=== PATIENT | male | born 1950 | race Caucasian/White ===

== ENCOUNTER 2018-08-01 10:38 | Day surgery (SDC) | payer OTHER, SELFPAY ==
[2018-07-11 08:09] VITALS: BMI 33.6
--- NOTE | 2018-08-01 07:40 | PM.PREOP ---
Pre-operative Note Interval Note History & Physical reviewed/Exam performed by Physician: Yes Changes to H&P: No
[2018-08-01 11:03] VITALS: BP 202/89; PULSE 61; RESP 15; TEMP 36.3; O2SAT 97; BMI 33.6
[2018-08-01] MEDS: LACTATED RINGERS 1,000 ML 42 ML IV (12:52)
[2018-08-01] MEDS: CEFAZOLIN 2 GM/100 ML FROZ.PIGGY IV (12:55)
--- NOTE | 2018-08-01 13:19 | SUR.OPER ---
Supine on padded OR bed, head on pillow, right arm secured on padded arm board at <90 degrees abduction, left arm drapped free on black padded arm tablelegs uncrossed, safety belt at thigh, tape over blanket over lower legs.
[2018-08-01] MEDS: BUPIVACAINE 0.5% W/ EPI (PF) VIAL 30 ML INJ (13:25)
--- NOTE | 2018-08-01 13:38 | P.OP_ITS ---
Operative Date/Time/Diagnoses Date of procedure: 08/01/18 Time of procedure: 13:00 Pre-op diagnosis: Left carpal tunnel Post-op diagnosis: same Procedure & Clinicians Procedure: Left carpal tunnel release Same procedure as scheduled: Yes Indications: Left carpal tunnel Surgeon: Reji Cordero Click Yes if Unassisted: Yes Anesthesia Type: Peripheral nerve block Operative Notes Findings: Compression of the median nerve at the carpal tunnel Closure Type: primary Specimen(s): none sent Estimated Blood Loss (mL): 0 Blood products transfused: none Tourniquet time (min): 26 Procedure in detail: On date of service, the patient was met in the holding area. Patients operative site was signed and witnessed by the OR staff. The surgery was once again discussed with the patient, and any remaining questions they had were answered fully. Patient was taken back to the operating theater and placed on the operating table in a supine position. Great care was taken to ensure that all bony prominences were carefully padded. A well-padded tourniquet was placed up along the upper extremity. A timeout was performed to verify patient's name, procedure, and operative site. The arm was then prepped and draped in the normal sterile fashion. A 15 blade was used to incise through skin In the center of the palm. Pickups and tenotomy scissors were used to dissect down until the palmar fascia was visualized. The palmar fascia was then sharply incised using a 15 blade. This gave us good visualization of the carpal ligament. A small opening was made into the carpal ligament, and a curved hemostat was placed into that opening. A 15 blade was then used to sharply incise the carpal ligament with the structures beneath being protected by the hemostat. Pickups and Metzenbaum scissors were used to complete the decompression both distally and proximally. This provided a complete decompression of the median nerve. The wound was then irrigated and closed with nylon. The hand was then cleaned, dried, and dressed. Patient was taken to the PACU in stable condition. Complications: none Condition: stable Disposition: PACU Plan for aftercare: No restrictions in range of motion. No lifting more than 2- 3 lb for 2 weeks.
[2018-08-01 13:46] VITALS: BP 176/90; BP 197/86; PULSE 71; PULSE 74; RESP 16; TEMP 36.4; TEMP 36.6; O2SAT 97; O2SAT 98
[2018-08-01] MEDS: HYDROCODONE/ACET 5/325 TABLET 1 TAB PO (14:03)
[2018-08-01 14:21] VITALS: BP 178/85; PULSE 78; RESP 16; TEMP 36.6; O2SAT 98
== END 2018-08-01 14:29 | disposition home or self-care (01) ==
PROVIDERS: PCP Family Medicine; Visit Provider Orthopaedic Surgery
PROC: (CPT 64721; principal; 2018-08-01 12:45)
DX: G56.02 Carpal tunnel syndrome, left upper limb (principal); I10 Essential (primary) hypertension; E78.5 Hyperlipidemia, unspecified
CPT/HCPCS: 64721; J0360; J0690

== ENCOUNTER → 2018-08-20 08:04 | Outpatient (CLI) | payer OTHER, SELFPAY ==
[2018-08-20 08:46] LABS: Add Manual Diff / Slide Review NO; Basophils Absolute Auto 0 /uL (0-100); Basophils Percent Auto 0.7 % (0-2); Eosinophils Absolute Auto 200 /uL (0-450); Eosinophils Percent Auto 2.9 % (2-4); Hematocrit 38.1 % (41-53); Hemoglobin 13.6 g/dL (13.5-17.5); Lymphocytes Absolute Auto 1400 /uL (1100-4500); Lymphocytes Percent Auto 25.6 % (25-40); Mean Corpuscular HGB Conc 35.8 % (30-36); Mean Corpuscular Hemoglobin 31.8 PG (26-34); Mean Corpuscular Volume 88.8 fL (80-100); Monocytes Absolute Auto 700 /uL (0-900); Monocytes Percent Auto 11.8 % (3-14); Neutrophils Absolute Auto 3300 /uL (1500-7000); Platelet Count 172 X10^3/uL (150-400); Red Blood Cell Count 4.29 X10^6/uL (4.5-5.9); Red Cell Distribution Width 13.4 % (11.6-14.8); White Blood Cell Count 5.6 X10^3/uL (4.5-11.0)
[2018-08-20 09:23] LABS: Alanine Aminotransferase 23 IU/L (21-72); Albumin 4.1 g/dL (3.5-5.0); Albumin Globulin Ratio 1.5 (1.0-2.8); Alkaline Phosphatase 47 U/L (38-126); Aspartate Aminotransferase 25 IU/L (17-59); BUN Creatinine Ratio 22.9 (6-22); Bilirubin Total 0.7 mg/dL (0.2-1.3); Blood Urea Nitrogen 16 mg/dL (9-20); Calcium 9.4 mg/dL (8.4-10.2); Carbon Dioxide 29 mmol/L (22-32); Chloride 96 mmol/L (98-107); Cholesterol 189 mg/dL (140-199); Estimated Glomerular Filt Rate > 60.0 mL/min (>60); Globulin 2.7 g/dL (1.7-4.1); Glucose 128 mg/dL (80-110); HDL Cholesterol 35 mg/dL (40-60); HEMOLYSIS 18 (0-50); Sodium 133 mmol/L (137-145); Total Protein 6.8 g/dL (6.3-8.2); Triglycerides 408 mg/dL (35-150)
[2018-08-20 09:42] LABS: Thyroid Stimulating Hormone 3.95 uIU/mL (0.47-4.68)
[2018-08-20 09:50] LABS: Prostate Specific Antigen Scrn 1.99 ng/mL (0.1-4.0)
== END ==
PROVIDERS: PCP Family Medicine; Visit Provider Family Medicine
DX: E78.2 Mixed hyperlipidemia (principal); I10 Essential (primary) hypertension; Z12.5 Encounter for screening for malignant neoplasm of prostate
CPT/HCPCS: 36415; 80053; 80061; 84443; 85025; G0103

== ENCOUNTER → 2019-09-08 06:56 | Outpatient (CLI) | payer MEDICARE, SELFPAY ==
[2019-09-08 08:46] LABS: Add Manual Diff / Slide Review NO; Basophils Absolute Auto 0 /uL (0-100); Basophils Percent Auto 0.7 % (0-2); Eosinophils Absolute Auto 200 /uL (0-450); Eosinophils Percent Auto 3.5 % (2-4); Hematocrit 38.9 % (41-53); Hemoglobin 13.7 g/dL (13.5-17.5); Lymphocytes Absolute Auto 1900 /uL (1100-4500); Lymphocytes Percent Auto 31.3 % (25-40); Mean Corpuscular HGB Conc 35.3 % (30-36); Mean Corpuscular Hemoglobin 31.8 PG (26-34); Mean Corpuscular Volume 90.1 fL (80-100); Monocytes Absolute Auto 700 /uL (0-900); Monocytes Percent Auto 12.2 % (3-14); Neutrophils Absolute Auto 3100 /uL (1500-7000); Neutrophils Percent Auto 52.3 % (50-75); Platelet Count 180 X10^3/uL (150-400); Red Blood Cell Count 4.32 X10^6/uL (4.5-5.9); Red Cell Distribution Width 13.4 % (11.6-14.8); White Blood Cell Count 5.9 X10^3/uL (4.5-11.0)
[2019-09-08 08:56] LABS: Hemoglobin A1C% w Est Avg Glu 6.4 % (4.0-6.0)
[2019-09-08 09:10] LABS: Alanine Aminotransferase 23 IU/L (<50); Albumin 4.2 g/dL (3.5-5.0); Albumin Globulin Ratio 1.6 (1.0-2.8); Alkaline Phosphatase 45 U/L (38-126); Aspartate Aminotransferase 31 IU/L (17-59); BUN Creatinine Ratio 29.2 (6-22); Bilirubin Total 0.5 mg/dL (0.2-1.3); Blood Urea Nitrogen 21 mg/dL (9-20); Calcium 9.4 mg/dL (8.4-10.2); Carbon Dioxide 28 mmol/L (22-32); Chloride 97 mmol/L (98-107); Cholesterol 194 mg/dL (140-199); Estimated Glomerular Filt Rate > 60.0 mL/min (>60); Globulin 2.6 g/dL (1.7-4.1); Glucose 134 mg/dL (80-110); HDL Cholesterol 36 mg/dL (40-60); HEMOLYSIS < 15 (0-50); LDL Cholesterol Calculated 86 mg/dL (<100); Sodium 134 mmol/L (137-145); Total Protein 6.8 g/dL (6.3-8.2); Triglycerides 361 mg/dL (35-150)
[2019-09-08 09:31] LABS: Prostate Specific Antigen Scrn 1.83 ng/mL (0.1-4.0)
== END ==
PROVIDERS: PCP Family Medicine; Referring Provider Family Medicine; Visit Provider Family Medicine
DX: Z12.5 Encounter for screening for malignant neoplasm of prostate (principal); E78.2 Mixed hyperlipidemia; I10 Essential (primary) hypertension
CPT/HCPCS: 36415; 80053; 80061; 83036; 85025; G0103

== ENCOUNTER → 2019-09-10 09:56 | Outpatient (CLI) | payer MEDICARE, SELFPAY ==
[2019-09-11 19:55] LABS: Testosterone 276 ng/dL (71.8-623)
== END ==
PROVIDERS: PCP Family Medicine; Visit Provider Family Medicine
DX: M25.50 Pain in unspecified joint (principal)
CPT/HCPCS: 84403

== ENCOUNTER → 2019-09-23 09:01 | Outpatient (CLI) | payer MEDICARE, SELFPAY | LOC: ECHO 09:01 | PROVIDERS: PCP Family Medicine; Referring Provider Family Medicine; Visit Provider Family Medicine | DX: R01.1 Cardiac murmur, unspecified (principal); I35.8 Other nonrheumatic aortic valve disorders; I77.810 Thoracic aortic ectasia | CPT/HCPCS: 93306 ==

== ENCOUNTER → 2020-04-08 09:46 | Outpatient (CLI) | payer MEDICARE, SELFPAY ==
[2020-04-08 10:39] LABS: Add Manual Diff / Slide Review NO; Basophils Absolute Auto 0 /uL (0-100); Basophils Percent Auto 0.6 % (0-2); Eosinophils Absolute Auto 100 /uL (0-450); Eosinophils Percent Auto 2.1 % (2-4); Hematocrit 39.7 % (41-53); Hemoglobin 13.5 g/dL (13.5-17.5); Lymphocytes Absolute Auto 1500 /uL (1100-4500); Lymphocytes Percent Auto 25.1 % (25-40); Mean Corpuscular HGB Conc 34.1 % (30-36); Mean Corpuscular Hemoglobin 30.9 PG (26-34); Mean Corpuscular Volume 90.7 fL (80-100); Monocytes Absolute Auto 700 /uL (0-900); Monocytes Percent Auto 11.1 % (3-14); Neutrophils Absolute Auto 3600 /uL (1500-7000); Neutrophils Percent Auto 61.1 % (50-75); Platelet Count 181 X10^3/uL (150-400); Red Blood Cell Count 4.38 X10^6/uL (4.5-5.9); Red Cell Distribution Width 13.4 % (11.6-14.8)
[2020-04-08 11:02] LABS: Alanine Aminotransferase 25 IU/L (<50); Albumin 4.2 g/dL (3.5-5.0); Albumin Globulin Ratio 1.6 (1.0-2.8); Alkaline Phosphatase 46 U/L (38-126); Aspartate Aminotransferase 31 IU/L (17-59); BUN Creatinine Ratio 23.3 (6-22); Bilirubin Total 0.6 mg/dL (0.2-1.3); Blood Urea Nitrogen 14 mg/dL (9-20); Calcium 9.2 mg/dL (8.4-10.2); Carbon Dioxide 33 mmol/L (22-32); Chloride 98 mmol/L (98-107); Cholesterol 196 mg/dL (140-199); Estimated Glomerular Filt Rate > 60.0 mL/min (>60); Globulin 2.7 g/dL (1.7-4.1); Glucose 120 mg/dL (80-110); HDL Cholesterol 44 mg/dL (40-60); HEMOLYSIS 17 (0-50); LDL Cholesterol Calculated 110 mg/dL (<100); Potassium 4.3 mmol/L (3.4-5.1); Sodium 134 mmol/L (137-145); Total Protein 6.9 g/dL (6.3-8.2); Triglycerides 208 mg/dL (35-150)
[2020-04-08 11:03] LABS: Hemoglobin A1C% w Est Avg Glu 6.5 % (4.0-6.0)
[2020-04-08 11:16] LABS: Creatinine Urine Random 71.5 mg/dL
[2020-04-08 11:36] LABS: Microalbumi Creatinin Ratio Ur 9.7 ug/mg CR (<30); Microalbumin Urine Random 0.7 mg/dL (0-1.6); Vitamin D 25 Hydroxy (D3) 31.7 ng/mL (30.0-100.0)
== END ==
PROVIDERS: PCP Family Medicine; Referring Provider Family Medicine; Visit Provider Family Medicine
DX: E78.2 Mixed hyperlipidemia (principal); R73.03 Prediabetes; I10 Essential (primary) hypertension; M25.50 Pain in unspecified joint
CPT/HCPCS: 36415; 80053; 80061; 82043; 82306; 82570; 83036; 85025

== ENCOUNTER → 2020-05-25 08:11 | Outpatient (CLI) | payer MEDICARE, SELFPAY ==
--- NOTE | 2020-05-25 08:12 | DI.RAD.S_ITS ---
PROCEDURE: XR KNEE LT 3V INDICATIONS: pain TECHNIQUE: 3 views of the knee were acquired. COMPARISON: None. FINDINGS: Bones: No fracture. Scattered degenerative subchondral sclerosis and spurring. Mild narrowing of the medial joint space. Presumed chronic ununited osteophyte seen at the superior pole of the patella Soft tissues: No joint effusion. No suspicious soft tissue calcifications. Scattered vascular calcifications. IMPRESSION: Mild left knee joint degeneration. If the patient's pain or other symptoms persist, consider further evaluation with MRI Dictated by: Chuck Patel M.D. on 05/25/2020 at 10:48 Approved by: Chuck Patel M.D. on 05/25/2020 at 10:49
--- NOTE | 2020-05-25 08:12 | DI.RAD.S_ITS ---
PROCEDURE: XR KNEE RT 3V INDICATIONS: pain TECHNIQUE: 3 views of the knee were acquired. COMPARISON: None. FINDINGS: Bones: No fracture. Scattered degenerative subchondral sclerosis and spurring. Mild narrowing of the medial joint space. Mild narrowing of the patellofemoral joint space. Soft tissues: No joint effusion. No suspicious soft tissue calcifications. Scattered vascular calcifications. IMPRESSION: Mild right knee joint degeneration. If the patient's pain or other symptoms persist, consider further evaluation with MRI Dictated by: Chuck Patel M.D. on 05/25/2020 at 10:47 Approved by: Chuck Patel M.D. on 05/25/2020 at 10:48
== END ==
PROVIDERS: PCP Family Medicine; Referring Provider Family Medicine; Visit Provider Family Medicine
DX: M25.561 Pain in right knee (principal); M25.562 Pain in left knee; M17.0 Bilateral primary osteoarthritis of knee; E78.2 Mixed hyperlipidemia; I10 Essential (primary) hypertension; R73.03 Prediabetes
CPT/HCPCS: 73562

== ENCOUNTER → 2021-02-16 08:11 | Outpatient (CLI) | payer MEDICARE, SELFPAY ==
[2021-02-16 10:02] LABS: Add Manual Diff / Slide Review NO; Basophils Absolute Auto 0 /uL (0-100); Basophils Percent Auto 0.7 % (0-2); Eosinophils Absolute Auto 200 /uL (0-450); Eosinophils Percent Auto 3.1 % (2-4); Hemoglobin 13.7 g/dL (13.5-17.5); Lymphocytes Absolute Auto 1100 /uL (1100-4500); Lymphocytes Percent Auto 18.9 % (25-40); Mean Corpuscular HGB Conc 34.3 % (30-36); Mean Corpuscular Hemoglobin 31.1 PG (26-34); Mean Corpuscular Volume 90.7 fL (80-100); Monocytes Absolute Auto 600 /uL (0-900); Monocytes Percent Auto 10.3 % (3-14); Neutrophils Absolute Auto 4000 /uL (1500-7000); Platelet Count 193 X10^3/uL (150-400); Red Blood Cell Count 4.41 X10^6/uL (4.5-5.9); Red Cell Distribution Width 13.1 % (11.6-14.8)
[2021-02-16 10:19] LABS: Hemoglobin A1C% w Est Avg Glu 5.9 % (4.0-6.0)
[2021-02-16 10:48] LABS: Alanine Aminotransferase 19 IU/L (<50); Albumin 3.9 g/dL (3.5-5.0); Albumin Globulin Ratio 1.6 (1.0-2.8); Alkaline Phosphatase 42 U/L (38-126); Aspartate Aminotransferase 26 IU/L (17-59); BUN Creatinine Ratio 23.5 (6-22); Bilirubin Total 0.8 mg/dL (0.2-1.3); Blood Urea Nitrogen 16 mg/dL (9-20); Calcium 9.2 mg/dL (8.4-10.2); Carbon Dioxide 31 mmol/L (22-32); Chloride 99 mmol/L (98-107); Cholesterol 213 mg/dL (140-199); Estimated Glomerular Filt Rate > 60.0 mL/min (>60); Globulin 2.4 g/dL (1.7-4.1); Glucose 130 mg/dL (80-110); HDL Cholesterol 45 mg/dL (40-60); HEMOLYSIS < 15 (0-50); LDL Cholesterol Calculated 132 mg/dL (<100); Potassium 4.4 mmol/L (3.4-5.1); Sodium 135 mmol/L (137-145); Total Protein 6.3 g/dL (6.3-8.2); Triglycerides 178 mg/dL (35-150)
== END ==
PROVIDERS: PCP Family Medicine; Referring Provider Family Medicine; Visit Provider Family Medicine
DX: E78.2 Mixed hyperlipidemia (principal); I10 Essential (primary) hypertension; Z12.5 Encounter for screening for malignant neoplasm of prostate; R73.03 Prediabetes
CPT/HCPCS: 36415; 80053; 80061; 83036; 85025; G0103

== ENCOUNTER → 2022-03-01 07:08 | Outpatient (CLI) | payer MEDICARE, SELFPAY ==
[2022-03-01 08:05] LABS: Add Manual Diff / Slide Review NO; Basophils Absolute Auto 0 /uL (0-100); Basophils Percent Auto 0.5 % (0-2); Eosinophils Absolute Auto 200 /uL (0-450); Eosinophils Percent Auto 3.3 % (2-4); Hematocrit 38.7 % (41-53); Hemoglobin 13.5 g/dL (13.5-17.5); Lymphocytes Absolute Auto 1500 /uL (1100-4500); Lymphocytes Percent Auto 21.2 % (25-40); Mean Corpuscular HGB Conc 34.8 % (30-36); Mean Corpuscular Hemoglobin 31.1 PG (26-34); Mean Corpuscular Volume 89.3 fL (80-100); Monocytes Absolute Auto 800 /uL (0-900); Monocytes Percent Auto 11.2 % (3-14); Neutrophils Absolute Auto 4400 /uL (1500-7000); Neutrophils Percent Auto 63.8 % (50-75); Platelet Count 206 X10^3/uL (150-400); Red Blood Cell Count 4.33 X10^6/uL (4.5-5.9); Red Cell Distribution Width 13.4 % (11.6-14.8); White Blood Cell Count 6.8 X10^3/uL (4.5-11.0)
[2022-03-01 10:48] LABS: Hemoglobin A1C% w Est Avg Glu 6.5 % (4.0-6.0)
[2022-03-01 23:47] LABS: Alanine Aminotransferase 25 IU/L (<50); Albumin 4.2 g/dL (3.5-5.0); Albumin Globulin Ratio 1.6 (1.0-2.8); Alkaline Phosphatase 53 U/L (38-126); Aspartate Aminotransferase 26 IU/L (17-59); BUN Creatinine Ratio 32.3 (6-22); Bilirubin Total 0.7 mg/dL (0.2-1.3); Blood Urea Nitrogen 20 mg/dL (9-20); Calcium 9.1 mg/dL (8.4-10.2); Carbon Dioxide 27 mmol/L (22-32); Chloride 96 mmol/L (98-107); Estimated Glomerular Filt Rate > 60 mL/min (>60); Globulin 2.7 g/dL (1.7-4.1); Glucose 136 mg/dL (80-110); HEMOLYSIS < 15 (0-50); Potassium 4.2 mmol/L (3.4-5.1); Sodium 134 mmol/L (137-145); Total Protein 6.9 g/dL (6.3-8.2)
[2022-03-02 00:16] LABS: Prostate Specific Antigen Scrn 2.07 ng/mL (0.1-4.0)
== END ==
PROVIDERS: PCP Family Medicine; Referring Provider Family Medicine; Visit Provider Family Medicine
DX: E11.9 Type 2 diabetes mellitus without complications (principal); Z12.5 Encounter for screening for malignant neoplasm of prostate; E78.2 Mixed hyperlipidemia; I10 Essential (primary) hypertension
CPT/HCPCS: 36415; 80053; 83036; 85025; G0103

== ENCOUNTER → 2022-06-28 07:06 | Outpatient (CLI) | payer MEDICARE, SELFPAY ==
[2022-06-28 08:37] LABS: BUN Creatinine Ratio 24.6 (6-22); Blood Urea Nitrogen 17 mg/dL (9-20); Estimated Glomerular Filt Rate > 60 mL/min (>60)
[2022-06-29 06:24] LABS: Labcorp Hemoglobin (Hb) A1c 6.7 % (4.8-5.6)
== END ==
PROVIDERS: PCP Family Medicine; Referring Provider Family Medicine; Visit Provider Family Medicine
DX: R79.9 Abnormal finding of blood chemistry, unspecified (principal); E11.9 Type 2 diabetes mellitus without complications
CPT/HCPCS: 36415; 82565; 83036; 84520

== ENCOUNTER → 2022-10-26 09:12 | Outpatient (CLI) | payer MEDICARE, SELFPAY ==
[2022-10-26 10:46] LABS: Alanine Aminotransferase 20 IU/L (<50); Albumin 4.1 g/dL (3.5-5.0); Albumin Globulin Ratio 1.5 (1.0-2.8); Alkaline Phosphatase 47 U/L (38-126); Aspartate Aminotransferase 25 IU/L (17-59); Bilirubin Total 0.8 mg/dL (0.2-1.3); Bilirubin Unconjugated 0.5 mg/dL (0.0-1.1); Cholesterol 187 mg/dL (140-199); Globulin 2.8 g/dL (1.7-4.1); HDL Cholesterol 38 mg/dL (40-60); HEMOLYSIS < 15 (0-50); LDL Cholesterol Calculated 111 mg/dL (<100); Total Protein 6.9 g/dL (6.3-8.2); Triglycerides 191 mg/dL (35-150)
[2022-10-26 12:40] LABS: Creatinine Urine Random 68.1 mg/dL
[2022-10-26 12:43] LABS: Microalbumi Creatinin Ratio Ur 24.9 ug/mg CR (<30); Microalbumin Urine Random 1.7 mg/dL (0-1.6)
[2022-10-27 07:09] LABS: x Labcorp Estim. Avg Glu (eAG) 137 mg/dL (.); x Labcorp Hemoglobin A1c 6.4 % (4.8-5.6)
== END ==
PROVIDERS: PCP Family Medicine; Referring Provider Family Medicine; Visit Provider Family Medicine
DX: E11.9 Type 2 diabetes mellitus without complications (principal); E78.2 Mixed hyperlipidemia; I10 Essential (primary) hypertension; R79.9 Abnormal finding of blood chemistry, unspecified; Z51.81 Encounter for therapeutic drug level monitoring
CPT/HCPCS: 36415; 80061; 80076; 82043; 82570; 83036

== ENCOUNTER → 2023-04-05 08:06 | Outpatient (CLI) | payer MEDICARE, SELFPAY ==
[2023-04-05 08:30] LABS: Add Manual Diff / Slide Review NO; Basophils Absolute Auto 0 /uL (0-100); Basophils Percent Auto 0.7 % (0-2); Eosinophils Absolute Auto 200 /uL (0-450); Eosinophils Percent Auto 3.7 % (2-4); Hematocrit 39.8 % (41-53); Hemoglobin 13.9 g/dL (13.5-17.5); Lymphocytes Absolute Auto 1600 /uL (1100-4500); Lymphocytes Percent Auto 24.5 % (25-40); Mean Corpuscular HGB Conc 34.9 % (30-36); Mean Corpuscular Hemoglobin 31.2 PG (26-34); Mean Corpuscular Volume 89.3 fL (80-100); Monocytes Absolute Auto 800 /uL (0-900); Monocytes Percent Auto 11.7 % (3-14); Neutrophils Absolute Auto 3800 /uL (1500-7000); Neutrophils Percent Auto 59.4 % (50-75); Platelet Count 204 X10^3/uL (150-400); Red Blood Cell Count 4.46 X10^6/uL (4.5-5.9); Red Cell Distribution Width 13.5 % (11.6-14.8); White Blood Cell Count 6.4 X10^3/uL (4.5-11.0)
[2023-04-05 10:28] LABS: Alanine Aminotransferase 21 IU/L (<50); Albumin 4.2 g/dL (3.5-5.0); Albumin Globulin Ratio 1.4 (1.0-2.8); Alkaline Phosphatase 47 U/L (38-126); Aspartate Aminotransferase 28 IU/L (17-59); BUN Creatinine Ratio 25.8 (6-22); Bilirubin Total 0.7 mg/dL (0.2-1.3); Blood Urea Nitrogen 16 mg/dL (9-20); Calcium 9.6 mg/dL (8.4-10.2); Carbon Dioxide 28 mmol/L (22-32); Chloride 95 mmol/L (98-107); Estimated Glomerular Filt Rate > 60 mL/min (>60); Glucose 149 mg/dL (80-110); HEMOLYSIS < 15 (0-50); Sodium 133 mmol/L (137-145); Total Protein 7.2 g/dL (6.3-8.2)
[2023-04-05 10:46] LABS: Hemoglobin A1C% w Est Avg Glu 6.5 % (4.0-6.0)
== END ==
PROVIDERS: PCP Family Medicine; Referring Provider Family Medicine; Visit Provider Family Medicine
DX: E11.9 Type 2 diabetes mellitus without complications (principal); I10 Essential (primary) hypertension; E78.2 Mixed hyperlipidemia
CPT/HCPCS: 36415; 80053; 83036; 85025

== ENCOUNTER → 2024-03-03 10:50 | Outpatient (CLI) | payer MEDICARE, SELFPAY ==
--- NOTE | 2024-03-03 10:53 | DI.RAD.S_ITS ---
PROCEDURE: XR KNEE LT 3V INDICATIONS: LEFT KNEE PAIN TECHNIQUE: 3 views of the knee were acquired. COMPARISON: [facility], , XR KNEE LT 3V, 05/25/2020, 8:12. FINDINGS: Bones: No fractures or dislocations. No suspicious bony lesions. Mild to moderate joint space narrowing is seen at the medial femorotibial compartment with small marginal osteophytes. Tiny marginal osteophytes at the lateral compartment. Moderate joint space narrowing is seen in the patellofemoral compartment with small marginal osteophytes. Small suprapatellar enthesophyte. Soft tissues: No joint effusion. No suspicious soft tissue calcifications. Arterial vascular calcifications are present. 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 Approved by: Basim Clifford M.D. on 03/03/2024 at 16:43
== END ==
PROVIDERS: PCP Family Medicine; Referring Provider Chiropractor; Visit Provider Chiropractor
DX: M17.12 Unilateral primary osteoarthritis, left knee (principal); M25.562 Pain in left knee
CPT/HCPCS: 73562

== ENCOUNTER → 2024-05-21 09:28 | Outpatient (CLI) | payer MEDICARE, OTHER, SELFPAY ==
[2024-05-21 10:12] LABS: Add Manual Diff / Slide Review NO; Basophils Absolute Auto 100 /uL (0-100); Basophils Percent Auto 1.3 % (0-2); Eosinophils Absolute Auto 200 /uL (0-450); Eosinophils Percent Auto 2.8 % (2-4); Hematocrit 40.1 % (41-53); Hemoglobin 13.7 g/dL (13.5-17.5); Lymphocytes Absolute Auto 1900 /uL (1100-4500); Lymphocytes Percent Auto 26.5 % (25-40); Mean Corpuscular HGB Conc 34.2 % (30-36); Mean Corpuscular Hemoglobin 30.4 PG (26-34); Mean Corpuscular Volume 88.8 fL (80-100); Monocytes Absolute Auto 800 /uL (0-900); Monocytes Percent Auto 11.8 % (3-14); Neutrophils Absolute Auto 4100 /uL (1500-7000); Neutrophils Percent Auto 57.6 % (50-75); Platelet Count 229 X10^3/uL (150-400); Red Blood Cell Count 4.52 X10^6/uL (4.5-5.9); Red Cell Distribution Width 13.4 % (11.6-14.8); White Blood Cell Count 7.1 X10^3/uL (4.5-11.0)
[2024-05-21 10:37] LABS: Alanine Aminotransferase 25 IU/L (<50); Albumin 4.2 g/dL (3.5-5.0); Albumin Globulin Ratio 1.7 (1.0-2.8); Alkaline Phosphatase 52 U/L (38-126); Aspartate Aminotransferase 33 IU/L (17-59); BUN Creatinine Ratio 20.8 (6-22); Bilirubin Total 0.8 mg/dL (0.2-1.3); Blood Urea Nitrogen 15 mg/dL (9-20); Calcium 9.2 mg/dL (8.4-10.2); Carbon Dioxide 27 mmol/L (22-32); Chloride 98 mmol/L (98-107); Cholesterol 195 mg/dL (140-199); Estimated Glomerular Filt Rate > 60 mL/min (>60); Globulin 2.5 g/dL (1.7-4.1); Glucose 142 mg/dL (80-110); HDL Cholesterol 45 mg/dL (40-60); HEMOLYSIS < 15 (0-50); LDL Cholesterol Calculated 113 mg/dL (<100); Potassium 4.2 mmol/L (3.4-5.1); Sodium 134 mmol/L (137-145); Total Protein 6.7 g/dL (6.3-8.2); Triglycerides 184 mg/dL (35-150)
[2024-05-21 10:41] LABS: Hemoglobin A1C% w Est Avg Glu 6.3 % (4.0-6.0)
[2024-05-21 11:08] LABS: Prostate Specific Antigen Scrn 2.11 ng/mL (0.1-4.0)
== END ==
LOC: LAB 09:31
PROVIDERS: PCP Family Medicine; Referring Provider Family Medicine; Visit Provider Family Medicine
DX: E78.2 Mixed hyperlipidemia (principal); E11.9 Type 2 diabetes mellitus without complications; Z12.5 Encounter for screening for malignant neoplasm of prostate; I10 Essential (primary) hypertension; Z68.35 Body mass index [BMI] 35.0-35.9, adult
CPT/HCPCS: 36415; 80053; 80061; 83036; 85025; G0103

== ENCOUNTER 2024-10-01 08:51 | Day surgery (SDC) | payer MEDICARE, OTHER, SELFPAY ==
--- NOTE | 2024-10-01 | PATH_ITS ---
[facility] Accession Number: [id number] No. of containers..01 Tissue . 01 Material submitted: . colon - TRANSVERSE POLYP X3 . 01 Diagnosis: TRANSVERSE COLON POLYPS: Tubular adenomas and inflammatory polyps (three polyps removed). MRV 10/13/2024 1242 Local . 01 Electronically signed: . Rocco Cardozo MD, PhD, Pathologist NPI- [id number] . 01 Gross description: . Received in formalin with two identifiers and transverse polyp x3, are multiple vega soft tissue fragments admixed with debris aggregating to 2.8 x 0.4 x 0.2 cm. Filtered and submitted entirely in A1. ([id number]) /MRV 10/10/2024 1735 Local . 01 Pathologist provided ICD-10: D12.3, K51.40 . 01 CPT . 712082 Specimen Comment: A courtesy copy of this report has been sent to [phone] Performed at: [address] [facility] [address], [place], [place] [id number] MD Marek Wu MD Phone: [phone]
--- NOTE | 2024-10-01 10:10 | PM.HP.IH.1 ---
History of Present Illness History of Present Illness Date Patient Seen: 10/01/24 Chief complaint: SDC Narrative: History of colon polyps [facility] Medical History (Updated 05/28/24 @ 09:17 by George Dunlap DO) Hx of colonic polyp BMI 38.0-38.9,adult Dysfunction of both eustachian tubes Chronic midline low back pain without sciatica Bilateral lower extremity edema Onychomycosis Elevated BUN Alcohol abuse Chronic toe pain, left foot Diabetes Iliotibial band syndrome of both sides Somatic dysfunction of lower extremity Bilateral knee pain BCC (basal cell carcinoma) Vertigo (~2010) HLD (hyperlipidemia) HTN (hypertension) Surgical History History of carpal tunnel release (~2007) History of carpal tunnel repair Family History Father Heart disease Social History household members: friend(s) alcohol intake: current Meds Home Medications and Allergies Home Medications ?Medication ?Instructions ?Recorded ?Confirmed ?Type multivitamin 1 cap PO DAILY ##0 06/26/11 05/28/24 History sildenafil (pulm.hypertension) 20 See Rx Instructions PO SEE 12/03/17 05/28/24 Rx mg tablet INSTRUCTIONS #50 tabs betamethasone valerate 0.1 % See Rx Instructions .Route 06/29/21 05/28/24 Rx topical cream .COMPLEX #45 grams furosemide 20 mg tablet 20 mg PO DAILY #90 tabs 04/12/23 05/28/24 Rx acetaminophen 300 mg-codeine 30 mg See Rx Instructions .Route 02/14/24 05/28/24 Rx tablet .COMPLEX #100 tabs latanoprost 0.005 % eye drops 1 drp EYE-RIGHT ONCE PM 05/07/24 05/28/24 History timolol maleate 0.5 % eye drops 1 drp EYE-BOTH BID 05/07/24 05/28/24 History losartan 50 mg tablet 50 mg PO DAILY #90 tabs 05/13/24 05/28/24 Rx atorvastatin 40 mg tablet 40 mg PO BEDTIME #90 tabs 05/28/24 05/28/24 Rx semaglutide 0.25 mg or 0.5 mg (2 0.5 mg (0.736 mL) SUBCUT QWEEK #3 05/28/24 05/28/24 Rx mg/3 mL) subcutaneous pen injector mL amlodipine 10 mg tablet 10 mg PO DAILY #90 tabs 06/17/24 Rx semaglutide 0.25 mg or 0.5 mg (2 0.25 mg (0.368 mL) SUBCUT QWEEK #3 06/17/24 Rx mg/3 mL) subcutaneous pen injector mL meloxicam 15 mg tablet 15 mg PO QAM #90 tabs 08/12/24 Rx hydrochlorothiazide 25 mg tablet 25 mg PO QAM #90 tabs 08/13/24 Rx omeprazole 20 mg capsule,delayed 20 mg PO DAILY #90 caps 08/20/24 Rx release sodium,potassium,mag sulfates 17.5 See Rx Instructions PO .COMPLEX 08/21/24 Rx gram-3.13 gram-1.6 gram oral soln #354 mL (Suprep Bowel Prep Kit) Allergies Allergy/AdvReac Type Severity Reaction Status Date / Time No Known Drug Allergies Allergy Verified 10/01/24 10:00 Exam Vital Signs (past 8 hours): Oropharynx free of lesion Assessment & Plan Assessment & Plan narrative: History of colon polyps need for follow-up colonoscopy. Risks, benefits, alternatives have been explained. Time-Based Coding :: [TOTAL MINUTES] spent with patient and on the chart (including review of chart, obtaining history, exam, reviewing outside data, placing orders, documenting exam and treatment plan, and counseling patient) on [DATE]. [employer] Administrator Document charge(s): No
--- NOTE | 2024-10-01 10:11 | PM.OP.ENDO ---
Operative Date/Time/Diagnoses Date of procedure: 10/01/24 Time of procedure: 11:04 Pre-op diagnosis: See indication and findings Post-op diagnosis: same Procedure & Clinicians Study performed: Colonoscopy Same procedure(s) as scheduled: Yes Indications: History of polyps Surgeon: Kodak Keller Anesthesia Type: Other Procedure Notes Procedure in detail: After informed consent was obtained the patient was placed in left lateral decubitus position. The video colonoscope was introduced the rectum slowly advanced cecum. Preparation was good. On slow withdrawal mucosa was carefully examined. The scope was removed. The patient tolerated procedure well. Blood loss none Complications none Sedation mac Findings One. Scattered sigmoid diverticulosis 2. Three polyps in the transverse colon ranging in size from 4 mm to 8 mm. The largest 2 were taken off with a cold snare and the 3rd with Jumbo biopsy forceps. 3. Otherwise negative colonoscopy to cecum Will be in touch regarding pathology but patient should have follow-up colonoscopy in 5 years
[2024-10-01 10:12] VITALS: BP 177/93; PULSE 61; RESP 16; TEMP 36.3; O2SAT 96
[2024-10-01] MEDS: LACTATED RINGERS 1,000 ML 42 ML IV (10:28)
[2024-10-01 11:03] VITALS: BP 133/78; PULSE 60; RESP 16; TEMP 36.9; O2SAT 93
== END 2024-10-01 11:22 | disposition home or self-care (01) ==
PROVIDERS: PCP Family Medicine; Referring Provider Internal Medicine Gastroenterology; Visit Provider Internal Medicine Gastroenterology
PROC: 0DJD8ZZ Inspection of Lower Intestinal Tract, Via Natural or Artificial Opening Endoscopic (ICD-10-PCS; CPT 45378; principal; 2024-10-01 10:30)
DX: Z12.11 Encounter for screening for malignant neoplasm of colon (principal); Z86.0100 Personal history of colon polyps, unspecified; K57.30 Diverticulosis of large intestine without perforation or abscess without bleeding; D12.3 Benign neoplasm of transverse colon; K51.40 Inflammatory polyps of colon without complications
CPT/HCPCS: 45385; 45380; J2704